=== PATIENT | female | born 1985 | race Caucasian/White ===

== ENCOUNTER → 2017-05-05 | Outpatient (CLI) | payer OTHER | LOC: LAB 16:17 | DX: E03.4 Atrophy of thyroid (acquired) (principal) ==

== ENCOUNTER 2017-10-13 01:07 | Emergency (ER) | payer OTHER ==
[~2017-10-13] VITALS: Ht 162.6 cm; Wt 68.2 kg
[2017-10-13] MEDS ORDERED: SYNTHROID RP0.1 MG PO (01:14)
[2017-10-13 01:50] LABS: HEMATOCRIT 37.2 % (37.0-47.0); HEMOGLOBIN 13.1 g/dL (12.5-16.0); MEAN CELL VOLUME 91 fl (78-100); MEAN CORPUSCULAR HEMOGLOBIN 32 pg (27-31); MEAN CORPUSCULAR HGB CONC 35 g/dL (33-37); MEAN PLATELET VOLUME 10.8 fl (7.4-10.4); PLATELET COUNT 265 K/mm3 (130-400); RED CELL DISTRIBUTION WIDTH 12.4 % (11.5-14.5); WHITE BLOOD COUNT 17.2 K/mm3 (4.8-10.8)
[2017-10-13 02:00] LABS: ALBUMIN 4.4 g/dL (3.5-5.0); BUN/CREATININE RATIO 18.1 (6.0-26.0); CALCIUM 9.8 mg/dL (8.4-10.2); POTASSIUM 3.9 mmol/L (3.6-5.0); TOTAL BILIRUBIN 1.1 mg/dL (0.2-1.3)
[2017-10-13 02:11] LABS: URINE APPEARANCE CLEAR; URINE BILIRUBIN NEGATIVE (NEGATIVE); URINE BLOOD TRACE (NEGATIVE); URINE COLOR YELLOW; URINE GLUCOSE NEGATIVE (NEGATIVE); URINE KETONE NEGATIVE (NEGATIVE); URINE LEUKOCYTE ESTERASE NEGATIVE (NEGATIVE); URINE NITRATE NEGATIVE (NEGATIVE); URINE PROTEIN(semi-quant) NEGATIVE (NEGATIVE); URINE UROBILINOGEN NORMAL (NORMAL)
[2017-10-13 02:16] LABS: LYMPHOCYTE 6 % (20-51); MONOCYTE 5 % (3-10); NEUTROPHILS 88 % (42-75)
[2017-10-13] MEDS ORDERED: NORCO 325 MG-51 TA1 PO (03:31)
[2017-10-13 03:42] VITALS: BP 124/81
== END 2017-10-13 03:42 | disposition home or self-care (01) ==
LOC: ED 01:07
PROVIDERS: Nurse Practitioner Primary Care
DX: A09 Infectious gastroenteritis and colitis, unspecified (principal); E89.0 Postprocedural hypothyroidism; Z88.2 Allergy status to sulfonamides
CPT/HCPCS: J2270; J2405; Q9967

== ENCOUNTER → 2018-03-27 | Outpatient (CLI) | payer OTHER ==
[~2018-03-27] MED LIST: NORCO 325 MG-51 TA1 PO; SYNTHROID RP0.1 MG PO
== END ==
LOC: LAB 11:38
DX: E03.4 Atrophy of thyroid (acquired) (principal)